=== PATIENT | female | born 1965 | race Caucasian/White ===

== ENCOUNTER → 2016-04-26 | Outpatient (CLI) | payer OTHER ==
[~2016-04-26] MED LIST: APAP500; ASPIRIN81 M2; B-100 COMPLEX1 EAC1 PO; CELEXA40 MG PO; ESTRACE1 MG PO; FISH OIL 1,0001 EAC5 PO; GLUCOSAMIN-CHO1 EACH PO; HYDROCODON-ACE1 EAC5 PO; HYDROCODON-ACE1 EAC7 PO; HYDROXYZINE HCL25 M1 GT; IRON325; MELOXICAM7.5 MG PO; MOBIC7.5 MG PO; VITAMIN D1000 UNI1 PO
== END ==
LOC: RAD 13:33
DX: Z12.31 Encounter for screening mammogram for malignant neoplasm of breast (principal)

== ENCOUNTER → 2018-06-11 | Outpatient (CLI) | payer OTHER ==
--- NOTE | 2018-06-12 21:27 | SLE ---
[facility] [address] [place] [address] POLYSOMNOGRAPHY STUDY Name: OSMAR HUNT Room #: REG [facility].#: [id number] Admission: 06/11/18 ������������������ Attend Phys: Kurtis Osborn MD Discharge: ������������������ Date of : 69 Report #: [id number] THIS REPORT FOR: //name// CC: Kurtis Ahn MD DATE OF SERVICE: 06/11/2018 ATTENDING PHYSICIAN: Dr. Mario Ahn. The patient is 53 years old who weighs 230 pounds with a BMI of 36. The patient has severe subjective hypersomnia with an Campbell score of 20 out of a maximum of 24. Review of medications also reveals that the patient is on morphine sulfate 60 mg b.i.d. along with Percocet. Sleep study was performed to rule out JACKELINE. During the night study, the patient spent 507 minutes in bed and slept for 416 minutes with a sleep efficiency of 82%. Sleep latency was 13.4 minutes with a REM latency of 119 minutes. Overall, sleep architecture showed normal stage 1 sleep, increased stage 2 sleep, reduced N3 sleep and reduced REM sleep. During the night of the study, the patient had 3 obstructive apneas, 1 central and no mixed apneas. There were 21 hypopneas. The patient's apnea hypopnea index was only 3.6 per hour. REM index was 14 per hour and a supine index of 3.7 per hour. EKG monitoring revealed an average heart rate of 56 beats per minute. No sustained arrhythmias observed. No clinically significant PLMS observed. Nocturnal oximetry study reviewed an average oxygen saturation of 95% with a lowest of 81%. 1.7 minutes were spent in oxygen saturation of less than 89%. Due to low AHI, the patient did not meet the split night criteria for CPAP initiation. IMPRESSION: 1. No clinically significant sleep disordered breathing. The patient's apnea-hypopnea index for the entire night was 3.6 per hour. The patient did have mild rapid eye movement related hypopneas at an apnea-hypopnea index of 14 per hour. 2. No clinically significant periodic limb movements during sleep. 3. No clinically significant nocturnal hypoxia. [facility] [address] [place] [address] POLYSOMNOGRAPHY STUDY Name: OSMAR HUNT ANN Room #: REG [facility].#: [id number] Admission: 06/11/18 ������������������ Attend Phys: Kurtis Osborn MD Discharge: ������������������ Date of : 69 Report #: [id number] RECOMMENDATIONS: 1. The patient did not meet the split night criteria for CPAP initiation due to low AHI. 2. The patient has severe subjective hypersomnia without any clinically significant sleep disordered breathing. Consider the effect of medications. The patient is currently on 60 mg morphine twice a day as well as Percocet b.i.d. If clinically possible, minimize the doses or reduce the frequency of narcotic medication to see clinical improvement. 3. If the patient continues to have hypersomnia despite reduction in the dose of narcotics, then the patient would require further evaluation such as multiple sleep latency test to rule out other disorders such as narcolepsy or idiopathic hypersomnia. 4. Caution regarding driving until the patient's hypersomnia is resolved with the above recommendations. ��������������������������������������������� <ELECTRONICALLY SIGNED> ���������������������������������������� By: Kurtis Osborn MD ��������������������������������������������� 06/12/187 1557 192 Kurtis Osborn MD /nt
== END ==
LOC: SLEEPLAB 06-08 11:40
DX: G47.33 Obstructive sleep apnea (adult) (pediatric) (principal); Z88.8 Allergy status to other drugs, medicaments and biological substances; Z88.0 Allergy status to penicillin

== ENCOUNTER → 2019-04-30 | Outpatient (CLI) | payer OTHER | LOC: CAT 09:30 | DX: Z13.6 Encounter for screening for cardiovascular disorders (principal); E78.00 Pure hypercholesterolemia, unspecified; I25.10 Atherosclerotic heart disease of native coronary artery without angina pectoris ==

== ENCOUNTER → 2019-09-11 | Outpatient (CLI) | payer BC, OTHER | LOC: RAD 10:27 | PROVIDERS: ATTEND Nurse Practitioner | DX: S69.92XA Unspecified injury of left wrist, hand and finger(s), initial encounter (principal); M19.032 Primary osteoarthritis, left wrist; M19.042 Primary osteoarthritis, left hand; X58.XXXA Exposure to other specified factors, initial encounter; Y93.89 Activity, other specified; Y92.89 Other specified places as the place of occurrence of the external cause; Y99.8 Other external cause status ==

== ENCOUNTER 2019-12-12 10:28 | Emergency (ER) | payer BC, OTHER ==
[~2019-12-12] VITALS: Ht 172.7 cm; Wt 117.9 kg
[2019-12-12] MEDS ORDERED: METOPROLOL SUCC25 M1 PO (11:03)
[2019-12-12] MEDS ORDERED: MS CONTIN 30 MG30 M1 PO (11:04)
[2019-12-12] MEDS ORDERED: HYDROXYZINE HCL25 M2 PO (11:04)
[2019-12-12] MEDS ORDERED: ATORVASTATIN CA10 MG PO (11:05)
[2019-12-12] MEDS ORDERED: IRBESARTAN75 MG PO (11:05)
[2019-12-12] MEDS ORDERED: GABAPENTIN600 M1 PO (11:05)
[2019-12-12] MEDS ORDERED: MELOXICAM15 MG PO (11:06)
[2019-12-12] MEDS ORDERED: TRAZODONE HCL50 MG PO (11:06)
[2019-12-12] MEDS ORDERED: HYDROCHLOROTHIA25 M2 PO (11:06)
[2019-12-12] MEDS ORDERED: DULOXETINE HCL60 MG PO (11:07)
[2019-12-12] MEDS ORDERED: ESTRADIOL 1 MG T1 M1 PO (11:07)
[2019-12-12] MEDS ORDERED: PERCOCET 10-321 EACH PO (11:07)
[2019-12-12 11:10] LABS: ABSOLUTE NEUTROPHILS 3.5 thou/uL (1.4-8.2); BASOPHILS 0.5 % (0.0-2.0); EOSINOPHILS 0.5 % (0.0-3.0); HEMATOCRIT 34.4 % (37.0-47.0); HEMOGLOBIN 11.6 gm/dL (12.0-15.0); LYMPHOCYTES 31.2 % (24.0-44.0); MCH 30.4 pg (26.0-34.0); MCHC 33.8 g/dL (28.0-37.0); MCV 89.9 fL (80.0-100.0); MONOCYTES 9.1 % (1.0-8.0); PLATELET COUNT 225 thou/uL (150-400); POLYS 58.7 % (36.0-66.0); RBC 3.82 mil/uL (4.20-5.00); RDW 13.4 % (10.5-14.5); WBC 5.9 thou/uL (4.0-11.0)
[2019-12-12 11:21] LABS: ANION GAP 8 mmol/L (7-16); BUN 21 mg/dL (7-18); CALCIUM 8.7 mg/dL (8.5-10.1); CHLORIDE 100 mmol/L (98-107); CO2 30 mmol/L (21-32); GLUCOSE 103 mg/dL (74-106); POTASSIUM 4.1 mmol/L (3.5-5.1); SODIUM 138 mmol/L (136-145)
[2019-12-12 11:30] LABS: ALBUMIN 3.9 g/dL (3.4-5.0); SGOT 54 U/L (15-37); SGPT 25 U/L (30-65); TOTAL BILIRUBIN 0.4 mg/dL (0.2-1.0); TOTAL PROTEIN 7.9 g/dL (6.4-8.2); TROPONIN-I <0.06 ng/mL (<0.06)
[2019-12-12] MEDS ORDERED: IBUPROFEN 600600 M1 PO (15:09)
--- NOTE | 2019-12-12 15:17 | EKG ---
[facility] [address] [place] [address] ELECTROCARDIOGRAM REPORT Name: OSMAR HUNT Room #: REG M.R.#: [id number] Admission: 12/12/19 Attend Phys: Discharge: Date of : 69 Report #: [id number] THIS REPORT FOR: cc: Hieu Ocasio MD, Neal A. MD Couchonnal, Luis F. MD ~ THIS REPORT FOR: //name// 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 Electronically Signed On 12-12-2019 15:17:30 CDT by Tico Faulkner [email or web address] <ELECTRONICALLY SIGNED> By: Tico Faulkner MD 12/12/19 1517 1048 1048 Tico Faulkner MD /EPI
[2019-12-12 15:54] VITALS: BP 114/54
--- NOTE | 2019-12-12 16:05 | EKG ---
[facility] [address] [place] [address] ELECTROCARDIOGRAM REPORT Name: OSMAR HUNT Room #: REG M.R.#: [id number] Admission: 12/12/19 Attend Phys: Discharge: Date of : 69 Report #: [id number] THIS REPORT FOR: cc: Hieu Ocasio MD, Neal A. MD Santiago, Patrick MD [facility] ~ THIS REPORT FOR: //name// [facility] ED Test Date: 2019-12-12 Test Time: 15:49:30 Pat Name: OSMAR HUNT Department: Room: Gender: F Lehr Tender: JHONATHAN NEVAJACINTO : 1965 Requested By: Yanet Mares Order Number: [id number] MD: Brad Cruz Measurements Intervals [place] Rate: 56 P: 42 AR: 212 QRS: 44 QRSD: 102 T: 55 QT: 438 QTc: 423 Interpretive Statements Sinus rhythm RIGHT BUNDLE BRANCH BLOCK, incomplete ST elevation suggests pericarditis Compared to ECG 12/12/2019 10:48:40 ST (T wave) deviation still present Electronically Signed On 12-12-2019 16:05:44 CDT by Brad Cruz [email or web address] <ELECTRONICALLY SIGNED> By: Brad Cruz MD, FAC 12/12/19 1605 1549 1549 Brad Cruz MD, [facility] /EPI
--- NOTE | 2019-12-12 16:36 | 2DMMODE ---
[facility] [place] [address] [place] [address] 2 D/M-MODE ECHOCARDIOGRAM Name: OSMAR HUNT Room #: DEP Dylon#: [id number] Admission: 12/12/19 Attend Phys: Discharge: 12/12/19 Date of : 69 Report #: [id number] THIS REPORT FOR: cc: Hieu Ocasio MD, Neal A. MD Mancuso, Gerald M. MD [facility] ~ APPROVED REPORT Study performed: 12/12/2019 14:51:53 EXAM: Comprehensive 2D, Doppler, and color-flow Echocardiogram Patient Location: ER Room #: 8 Status: stat BSA: 2.28 HR: 59 bpm BP: 127/55 mmHg Rhythm: Bradycardia Other Information Study Quality: Good Indications Dyspnea Pericarditis 2D Dimensions RVDd: 40.14 mm IVSd: 10.27 (7-11mm) LVOT Diam: 21.08 (18-24mm) LVDd: 46.39 mm PWd: 11.33 (7-11mm) Ascending Ao: 28.96 (22-36mm) LVDs: 29.98 (25-40mm) Aortic Root: 29.44 mm IVC: 19.00 mm Volumes Left Atrial Volume (Systole) Single Plane 4CH: 57.86 mL Single Plane 2CH: 56.74 mL LA ESV Index: 27.00 mL/m2 Aortic Valve AoV Peak Srikanth.: 1.25 m/s AO Peak Gr.: 6.24 mmHg LVOT Max P.78 mmHg LVOT Max V: 1.20 m/s ALESSANDRO Vmax: 3.36 cm2 [facility] [address] [place] [address] 2 D/M-MODE ECHOCARDIOGRAM Name: OSMAR HUNT Room #: DEP ER Dylon#: [id number] Admission: 12/12/19 Attend Phys: Discharge: 12/12/19 Date of : 69 Report #: [id number] Mitral Valve E/A Ratio: 1.3 MV Decel. Time: 214.53 ms MV E Max Srikanth.: 0.85 m/s MV A Srikanth.: 0.66 m/s MV PHT: 62.21 ms IVRT: 101.50 ms Pulmonary Valve PV Peak Srikanth.: 0.89 m/s PV Peak Gr.: 3.15 mmHg Pulmonary Vein P Vein S: 0.39 m/s P Vein A: 0.25 m/s P Vein D: 0.30 m/s P Vein A Dur.: 110.7 msec P Vein S/D Ratio: 1.30 Left Ventricle The left ventricle is normal size. There is normal LV segmental wall motion. There is normal left ventricular wall thickness. Left ventricular systolic function is normal. The left ventricular ejection fraction is within the normal range. LVEF is 55-60%. The left ventricular diastolic function is normal. Right Ventricle The right ventricle is normal size. The right ventricular systolic function is normal. Atria The left atrium size is normal. The right atrium size is normal. Aortic Valve The aortic valve is normal in structure. No aortic regurgitation is present. There is no aortic valvular stenosis. Mitral Valve The mitral valve is normal in structure. There is no mitral valve regurgitation noted. No evidence of mitral valve stenosis. Tricuspid Valve The tricuspid valve is normal in structure. There is no tricuspid valve regurgitation noted. Pulmonic Valve The pulmonary valve is normal in structure. There is no pulmonic [facility] [address] [place] [address] 2 D/M-MODE ECHOCARDIOGRAM Name: OSMAR HUNT ANN Room #: DEP Dylon#: [id number] Admission: 12/12/19 Attend Phys: Discharge: 12/12/19 Date of : 69 Report #: [id number] valvular regurgitation. Great Vessels The aortic root is normal in size. IVC is normal in size and collapses >50% with inspiration. Pericardium There is no pericardial effusion. <Conclusion> The left ventricle is normal size. LVEF is 55-60%. The left ventricular diastolic function is normal. The right ventricle is normal size. The left atrium size is normal. The aortic valve is normal in structure. There is no mitral valve regurgitation noted. There is no tricuspid valve regurgitation noted. The aortic root is normal in size. There is no pericardial effusion. <ELECTRONICALLY SIGNED> By: Gama Driver MD, [facility] 12/12/19 163 [id number] 34 Gama Driver MD, FAC /INF
== END 2019-12-12 15:54 ==
LOC: ER 10:28
PROVIDERS: Emergency Medicine
DX: I31.9 Disease of pericardium, unspecified (principal); Z79.82 Long term (current) use of aspirin; Z79.899 Other long term (current) drug therapy; Z87.891 Personal history of nicotine dependence; Z88.0 Allergy status to penicillin; Z88.1 Allergy status to other antibiotic agents

== ENCOUNTER → 2020-03-17 | Outpatient (CLI) | payer BC, OTHER ==
[~2020-03-17] MED LIST changes: +ATORVASTATIN CA10 MG PO; +DULOXETINE HCL60 MG PO; +ESTRADIOL 1 MG T1 M1 PO; +GABAPENTIN600 M1 PO; +HYDROCHLOROTHIA25 M2 PO; +HYDROXYZINE HCL25 M2 PO; +IBUPROFEN 600600 M1 PO; +IRBESARTAN75 MG PO; +MELOXICAM15 MG PO; +METOPROLOL SUCC25 M1 PO; +MS CONTIN 30 MG30 M1 PO; +PERCOCET 10-321 EACH PO; +TRAZODONE HCL50 MG PO
== END ==
LOC: SJCVCIMAG 08:40
PROVIDERS: ATTEND Internal Medicine
DX: R07.9 Chest pain, unspecified (principal); R06.00 Dyspnea, unspecified; Z79.899 Other long term (current) drug therapy

== ENCOUNTER → 2020-03-25 | Outpatient (CLI) | payer BC, OTHER | LOC: SJCVCIMAG 07:30 | PROVIDERS: ATTEND Internal Medicine | DX: I87.2 Venous insufficiency (chronic) (peripheral) (principal); M79.89 Other specified soft tissue disorders; Z78.0 Asymptomatic menopausal state; Z87.891 Personal history of nicotine dependence ==

== ENCOUNTER → 2020-04-15 | Outpatient (CLI) | payer BC, OTHER | LOC: NUC 09:41 | PROVIDERS: ATTEND Family Medicine | DX: N95.9 Unspecified menopausal and perimenopausal disorder (principal); M16.0 Bilateral primary osteoarthritis of hip; M25.50 Pain in unspecified joint ==

== ENCOUNTER 2020-08-16 09:57 | Emergency (ER) | payer BC, OTHER ==
[~2020-08-16] VITALS: Ht 170.2 cm; Wt 115.7 kg
[2020-08-16] MEDS ORDERED: NORCO5 PO (12:10)
[2020-08-16 12:18] VITALS: BP 122/61
== END 2020-08-16 12:18 | disposition home or self-care (01) ==
LOC: ER 09:57
DX: S02.2XXA Fracture of nasal bones, initial encounter for closed fracture (principal); Z87.891 Personal history of nicotine dependence; Z88.1 Allergy status to other antibiotic agents; Z88.0 Allergy status to penicillin; Z88.8 Allergy status to other drugs, medicaments and biological substances; Z79.899 Other long term (current) drug therapy; Z79.82 Long term (current) use of aspirin; Z90.710 Acquired absence of both cervix and uterus; Z98.890 Other specified postprocedural states; W01.0XXA Fall on same level from slipping, tripping and stumbling without subsequent striking against object, initial encounter; Y93.01 Activity, walking, marching and hiking; Y92.89 Other specified places as the place of occurrence of the external cause; Y99.9 Unspecified external cause status

== ENCOUNTER → 2020-11-24 | Outpatient (CLI) | payer BC, OTHER ==
[~2020-11-24] MED LIST changes: +NORCO5 PO
== END ==
LOC: SJCVCIMAG 13:03
PROVIDERS: ATTEND Internal Medicine
DX: I08.1 Rheumatic disorders of both mitral and tricuspid valves (principal)